=== PATIENT | male | born 1930 | race Caucasian/White ===

== ENCOUNTER 2016-08-31 11:49 | Inpatient (IN) | payer MEDICARE, MEDICAID ==
[2016-08-31] VITALS (21 sets, daily range): BP systolic 137–180; RESP 9–34; TEMP 98.3; BMI 22.1
[~2016-08-31] VITALS: Ht 160 cm; Wt 56.7 kg
[2016-08-31] MEDS ORDERED: ACETAMINOPHEN 650 MG SUPP RECTAL ONE (11:59)
[2016-08-31] MEDS ORDERED: FOSPHENYTOIN 1,000 PE in SODIUM CHLORIDE 0.9% 100 ML IV ONE (12:50)
[2016-08-31] MEDS ORDERED: ONDANSETRON 4 MG VIAL IV PUSH PRN (13:45)
[2016-08-31] MEDS ORDERED: ACETAMINOPHEN 325 MG TAB PO PRN ×2 (13:45)
[2016-08-31] MEDS ORDERED: SODIUM CHLORIDE 0.9% 250 ML IV ONE (14:02)
[2016-08-31] MEDS ORDERED: AZITHROMYCIN 500 MG VIAL IV ONE (14:02)
[2016-08-31] MEDS ORDERED: LORAZEPAM 2 MG/ML VIAL ONE (14:40)
[2016-08-31] MEDS: SODIUM CHLORIDE 0.45% 1,000 ML IV SCH (15:15)
[2016-08-31] MEDS: CEFTRIAXONE 1 GM in SODIUM CHLORIDE 0.9% 50 ML IV SCH (15:38)
[2016-08-31] MEDS: LABETALOL 100 MG/20 ML VIAL IV PUSH SCH ×2 (16:00→20:00)
[2016-08-31] MEDS ORDERED: MISSING DOSE XX ONE (16:00)
[2016-08-31] MEDS: LEVETIRACETAM INJ 500 MG in SODIUM CHLORIDE 0.9% 100 ML IV SCH (20:44)
[2016-09-01] VITALS (24 sets, daily range): BP systolic 143–203; RESP 13–34; TEMP 97.1–98.4; Ht 160 cm; Wt 56.7 kg
[2016-09-01] MEDS: LABETALOL 100 MG/20 ML VIAL IV PUSH SCH ×6 (02:20→20:00)
[2016-09-01] MEDS: LEVETIRACETAM INJ 500 MG in SODIUM CHLORIDE 0.9% 100 ML IV SCH ×2 (09:07→20:26)
[2016-09-01] MEDS: CEFTRIAXONE 1 GM in SODIUM CHLORIDE 0.9% 50 ML IV SCH (09:10)
[2016-09-01] MEDS: AZITHROMYCIN 500 MG in SODIUM CHLORIDE 0.9% 250 ML IV SCH (09:10)
[2016-09-01] MEDS: SODIUM CHLORIDE 0.45% 1,000 ML IV SCH ×2 (09:18→20:26)
[2016-09-01] MEDS: Carvedilol 6.25 MG TAB PO SCH (22:50)
[2016-09-01] MEDS: LISINOPRIL 10 MG TAB PO SCH (22:50)
[2016-09-02] VITALS (10 sets, daily range): BP systolic 111–164; RESP 16–20; TEMP 97.6–98.8
[2016-09-02] MEDS: LABETALOL 100 MG/20 ML VIAL IV PUSH SCH ×7 (03:52→23:58)
[2016-09-02] MEDS: SUCRALFATE 1 GM TAB PO SCH ×4 (06:19→21:00)
[2016-09-02] MEDS: LEVETIRACETAM INJ 500 MG in SODIUM CHLORIDE 0.9% 100 ML IV SCH ×2 (10:49→20:00)
[2016-09-02] MEDS: AZITHROMYCIN 500 MG in SODIUM CHLORIDE 0.9% 250 ML IV SCH (10:51)
[2016-09-02] MEDS: CEFTRIAXONE 1 GM in SODIUM CHLORIDE 0.9% 50 ML IV SCH (10:51)
[2016-09-02] MEDS: ASPIRIN EC 81 MG TAB PO SCH (10:51)
[2016-09-02] MEDS: LISINOPRIL 10 MG TAB PO SCH (10:51)
[2016-09-02] MEDS: Carvedilol 6.25 MG TAB PO SCH ×2 (10:51→21:00)
[2016-09-02] MEDS ORDERED: LEVETIRACETAM INJ 500 MG in SODIUM CHLORIDE 0.9% 100 ML IV ONE (12:05)
[2016-09-02] MEDS: LEVETIRACETAM INJ 1,000 MG in SODIUM CHLORIDE 0.9% 100 ML IV SCH (20:16)
[2016-09-02] MEDS ORDERED: LORAZEPAM 2 MG/ML VIAL IV ONE (21:25)
[2016-09-02] MEDS ORDERED: LORAZEPAM 2 MG/ML VIAL IV PRN (22:00)
[2016-09-02] MEDS ORDERED: FOSPHENYTOIN 1,000 PE in SODIUM CHLORIDE 0.9% 100 ML IV ONE (22:00)
[2016-09-02] MEDS: SODIUM CHLORIDE 0.45% 1,000 ML IV SCH (22:37)
[2016-09-03] VITALS (7 sets, daily range): BP systolic 93–131; RESP 18–33; TEMP 98–98.6
[2016-09-03] MEDS: LABETALOL 100 MG/20 ML VIAL IV PUSH SCH ×5 (04:00→20:00)
[2016-09-03] MEDS: SUCRALFATE 1 GM TAB PO SCH ×4 (06:26→20:14)
[2016-09-03] MEDS: SODIUM CHLORIDE 0.45% 1,000 ML IV SCH ×2 (07:27→19:05)
[2016-09-03] MEDS: LEVETIRACETAM INJ 1,000 MG in SODIUM CHLORIDE 0.9% 100 ML IV SCH ×2 (09:17→20:14)
[2016-09-03] MEDS: ASPIRIN EC 81 MG TAB PO SCH (09:25)
[2016-09-03] MEDS: Carvedilol 6.25 MG TAB PO SCH ×2 (09:25→20:14)
[2016-09-03] MEDS: LISINOPRIL 10 MG TAB PO SCH (09:25)
[2016-09-03] MEDS: CEFTRIAXONE 2 GM in SODIUM CHLORIDE 0.9% 50 ML IV SCH (10:38)
[2016-09-03] MEDS: AZITHROMYCIN 500 MG in SODIUM CHLORIDE 0.9% 250 ML IV SCH (12:09)
[2016-09-04] VITALS (7 sets, daily range): BP systolic 109–172; RESP 16–20; TEMP 98–98.8
[2016-09-04] MEDS: SODIUM CHLORIDE 0.45% 1,000 ML IV SCH ×2 (03:30→13:33)
[2016-09-04] MEDS: LABETALOL 100 MG/20 ML VIAL IV PUSH SCH ×7 (04:00→23:56)
[2016-09-04] MEDS: SUCRALFATE 1 GM TAB PO SCH ×4 (06:08→21:05)
[2016-09-04] MEDS: LEVETIRACETAM INJ 1,000 MG in SODIUM CHLORIDE 0.9% 100 ML IV SCH ×2 (09:04→21:05)
[2016-09-04] MEDS: ASPIRIN EC 81 MG TAB PO SCH (09:04)
[2016-09-04] MEDS: Carvedilol 6.25 MG TAB PO SCH ×2 (09:04→21:05)
[2016-09-04] MEDS: LISINOPRIL 10 MG TAB PO SCH (09:04)
[2016-09-04] MEDS: CEFTRIAXONE 2 GM in SODIUM CHLORIDE 0.9% 50 ML IV SCH (10:14)
[2016-09-04] MEDS: PHENYTOIN 100 MG CAP PO SCH (21:59)
[2016-09-05 03:39] VITALS: BP_SYST 150; RESP 16; TEMP 98.4
[2016-09-05] MEDS: LABETALOL 100 MG/20 ML VIAL IV PUSH SCH ×5 (04:43→20:00)
[2016-09-05] MEDS: SUCRALFATE 1 GM TAB PO SCH ×4 (06:02→20:17)
[2016-09-05 07:29] VITALS: BP_SYST 165; RESP 20; TEMP 98.2
[2016-09-05] MEDS: LEVETIRACETAM INJ 1,000 MG in SODIUM CHLORIDE 0.9% 100 ML IV SCH (08:23)
[2016-09-05] MEDS ORDERED: SALINE FLUSH 10 ML FLUSH PRN (08:25)
[2016-09-05] MEDS: CEFTRIAXONE 2 GM in SODIUM CHLORIDE 0.9% 50 ML IV SCH (09:39)
[2016-09-05] MEDS: LISINOPRIL 10 MG TAB PO SCH (09:40)
[2016-09-05] MEDS: Carvedilol 6.25 MG TAB PO SCH ×2 (09:40→20:17)
[2016-09-05] MEDS: ASPIRIN EC 81 MG TAB PO SCH (09:40)
[2016-09-05 11:42] VITALS: BP_SYST 187; RESP 20; TEMP 98.1
[2016-09-05 15:53] VITALS: BP_SYST 134; RESP 20; TEMP 97.5
[2016-09-05 20:13] VITALS: BP_SYST 143; RESP 16; TEMP 97.5
[2016-09-05] MEDS: PHENYTOIN 100 MG CAP PO SCH (20:17)
[2016-09-05] MEDS: LEVETIRACETAM 500 MG TAB PO SCH (20:17)
[2016-09-05] MEDS: SALINE FLUSH 10 ML FLUSH SCH (20:17)
[2016-09-05] MEDS: CEFUROXIME 250 MG TAB PO SCH (20:17)
[2016-09-05] MEDS ORDERED: MAG CIT SOLN 300 ML PO ONE (22:40)
[2016-09-05 23:34] VITALS: BP_SYST 145; RESP 16; TEMP 98.3
[2016-09-06] MEDS: DOCUSATE SOD 100 MG CAP PO SCH ×3 (01:01→20:14)
[2016-09-06 03:57] VITALS: BP_SYST 138; RESP 16; TEMP 98
[2016-09-06] MEDS: LABETALOL 100 MG/20 ML VIAL IV PUSH SCH ×6 (04:00→20:00)
[2016-09-06] MEDS: SODIUM CHLORIDE 0.9% FLUSH BAG 500 ML IV SCH (06:00)
[2016-09-06] MEDS: SUCRALFATE 1 GM TAB PO SCH ×4 (06:45→20:14)
[2016-09-06] MEDS: SALINE FLUSH 10 ML FLUSH SCH ×2 (08:00→20:00)
[2016-09-06 09:06] VITALS: BP_SYST 161; RESP 18
[2016-09-06] MEDS: CEFUROXIME 250 MG TAB PO SCH ×2 (10:41→20:14)
[2016-09-06] MEDS: ASPIRIN EC 81 MG TAB PO SCH (10:41)
[2016-09-06] MEDS: LEVETIRACETAM 500 MG TAB PO SCH ×2 (10:42→20:15)
[2016-09-06] MEDS: Carvedilol 6.25 MG TAB PO SCH ×2 (10:42→20:15)
[2016-09-06] MEDS: LISINOPRIL 10 MG TAB PO SCH (10:43)
[2016-09-06 13:17] VITALS: BP_SYST 118
[2016-09-06 16:15] VITALS: BP_SYST 114; RESP 18; TEMP 97.5
[2016-09-06] MEDS: PHENYTOIN 100 MG CAP PO SCH (20:14)
[2016-09-06 20:22] VITALS: BP_SYST 126; RESP 16; TEMP 98.4
[2016-09-06 22:54] VITALS: BP_SYST 130; RESP 18; TEMP 97.7
[2016-09-07 03:45] VITALS: BP_SYST 132; RESP 16; TEMP 97.7
[2016-09-07] MEDS: LABETALOL 100 MG/20 ML VIAL IV PUSH SCH ×6 (04:00→21:37)
[2016-09-07] MEDS: SODIUM CHLORIDE 0.9% FLUSH BAG 500 ML IV SCH (04:37)
[2016-09-07] MEDS: SUCRALFATE 1 GM TAB PO SCH ×4 (06:05→21:38)
[2016-09-07 07:24] VITALS: BP_SYST 134; RESP 20; TEMP 98
[2016-09-07] MEDS: CEFUROXIME 250 MG TAB PO SCH ×2 (09:22→21:38)
[2016-09-07] MEDS: SALINE FLUSH 10 ML FLUSH SCH ×2 (09:22→20:00)
[2016-09-07] MEDS: Carvedilol 6.25 MG TAB PO SCH ×2 (09:22→21:38)
[2016-09-07] MEDS: ASPIRIN EC 81 MG TAB PO SCH (09:22)
[2016-09-07] MEDS: DOCUSATE SOD 100 MG CAP PO SCH ×2 (09:22→21:38)
[2016-09-07] MEDS: LISINOPRIL 10 MG TAB PO SCH (09:22)
[2016-09-07] MEDS: LEVETIRACETAM 500 MG TAB PO SCH ×2 (09:22→21:38)
[2016-09-07 11:03] VITALS: BP_SYST 103; RESP 18; TEMP 98.9
[2016-09-07 14:59] VITALS: BP_SYST 102; RESP 20; TEMP 98.4
[2016-09-07 19:41] VITALS: BP_SYST 145; RESP 18; TEMP 97.6
[2016-09-07] MEDS: PHENYTOIN 100 MG CAP PO SCH (21:39)
[2016-09-07 23:52] VITALS: BP_SYST 128; TEMP 98.3
[2016-09-08] MEDS: LABETALOL 100 MG/20 ML VIAL IV PUSH SCH ×6 (04:00→19:35)
[2016-09-08 04:33] VITALS: BP_SYST 144; RESP 16; TEMP 98.4
[2016-09-08] MEDS: SODIUM CHLORIDE 0.9% FLUSH BAG 500 ML IV SCH (05:06)
[2016-09-08 07:31] VITALS: BP_SYST 170; RESP 16; TEMP 97.9
[2016-09-08] MEDS: SUCRALFATE 1 GM TAB PO SCH ×4 (08:23→19:37)
[2016-09-08] MEDS: SALINE FLUSH 10 ML FLUSH SCH ×2 (09:22→19:38)
[2016-09-08] MEDS: CEFUROXIME 250 MG TAB PO SCH ×2 (10:37→19:38)
[2016-09-08] MEDS: LEVETIRACETAM 500 MG TAB PO SCH ×2 (10:38→19:38)
[2016-09-08] MEDS: Carvedilol 6.25 MG TAB PO SCH ×2 (10:38→19:38)
[2016-09-08] MEDS: DOCUSATE SOD 100 MG CAP PO SCH ×2 (10:39→19:37)
[2016-09-08] MEDS: ASPIRIN EC 81 MG TAB PO SCH (10:39)
[2016-09-08] MEDS: LISINOPRIL 10 MG TAB PO SCH (10:39)
[2016-09-08] MEDS ORDERED: MISSING DOSE XX ONE (10:50)
[2016-09-08 10:58] VITALS: BP_SYST 143; RESP 24; TEMP 98.1
[2016-09-08 15:09] VITALS: BP_SYST 123; RESP 24; TEMP 98.2
[2016-09-08 19:20] VITALS: BP_SYST 169; RESP 16; TEMP 98.3
[2016-09-08] MEDS: PHENYTOIN 100 MG CAP PO SCH (19:38)
[2016-09-08 23:57] VITALS: BP_SYST 147; RESP 16; TEMP 97.7
[2016-09-09 03:12] VITALS: BP_SYST 175; RESP 18; TEMP 97.8
[2016-09-09] MEDS: LABETALOL 100 MG/20 ML VIAL IV PUSH SCH ×4 (04:00→11:43)
[2016-09-09] MEDS: SUCRALFATE 1 GM TAB PO SCH (07:00)
[2016-09-09 07:26] VITALS: BP_SYST 156; RESP 20; TEMP 98.1
[2016-09-09] MEDS: ASPIRIN EC 81 MG TAB PO SCH (08:09)
[2016-09-09] MEDS: CEFUROXIME 250 MG TAB PO SCH (08:09)
[2016-09-09] MEDS: LEVETIRACETAM 500 MG TAB PO SCH ×2 (08:09→21:38)
[2016-09-09] MEDS: DOCUSATE SOD 100 MG CAP PO SCH ×2 (08:09→21:39)
[2016-09-09] MEDS: Carvedilol 6.25 MG TAB PO SCH (08:09)
[2016-09-09] MEDS: LISINOPRIL 10 MG TAB PO SCH (08:09)
[2016-09-09 11:05] VITALS: BP_SYST 82; BP_SYST 89; RESP 20; TEMP 97.3
[2016-09-09 15:32] VITALS: BP_SYST 109; RESP 20; TEMP 97.6
[2016-09-09 19:55] VITALS: BP_SYST 118; RESP 20; TEMP 98.4
[2016-09-09] MEDS: PHENYTOIN 100 MG CAP PO SCH (21:39)
[2016-09-09 23:51] VITALS: BP_SYST 128; RESP 20; TEMP 97.9
[2016-09-10 07:49] VITALS: BP_SYST 150; RESP 20; TEMP 97.5
[2016-09-10] MEDS: DOCUSATE SOD 100 MG CAP PO SCH ×2 (08:19→21:01)
[2016-09-10] MEDS: LEVETIRACETAM 500 MG TAB PO SCH ×2 (08:19→21:02)
[2016-09-10] MEDS: ASPIRIN EC 81 MG TAB PO SCH (08:19)
[2016-09-10] MEDS: LISINOPRIL 10 MG TAB PO SCH (08:19)
[2016-09-10 11:19] VITALS: BP_SYST 111; RESP 16; TEMP 98.1
[2016-09-10 14:36] VITALS: BP_SYST 145; RESP 20; TEMP 98.5
[2016-09-10 17:42] VITALS: BP_SYST 136; RESP 18; TEMP 98.4
[2016-09-10 17:52] VITALS: BP_SYST 136; RESP 18; TEMP 98.4
[2016-09-10] MEDS: PHENYTOIN 100 MG CAP PO SCH (21:02)
== END 2016-09-10 21:15 | DRG 100 ==
LOC: ENRESERVDT → ENRESERVTM → ER 11:49 → ENPENDDIS 13:42 → DELPENDDIS 13:42 → EMR 13:42 → ICU 15:03 → 4NT 09-01 14:38
PROVIDERS: ADMIT Internal Medicine; ATTEND Internal Medicine
DX: G40.409 Other generalized epilepsy and epileptic syndromes, not intractable, without status epilepticus (principal); J18.9 Pneumonia, unspecified organism; E87.2 Acidosis; I10 Essential (primary) hypertension; F03.90 Unspecified dementia, unspecified severity, without behavioral disturbance, psychotic disturbance, mood disturbance, and anxiety; E78.5 Hyperlipidemia, unspecified; K21.9 Gastro-esophageal reflux disease without esophagitis; K27.7 Chronic peptic ulcer, site unspecified, without hemorrhage or perforation; K59.00 Constipation, unspecified; Z86.73 Personal history of transient ischemic attack (TIA), and cerebral infarction without residual deficits; Z79.82 Long term (current) use of aspirin
CPT/HCPCS: 36415; 71010; 80053; 80156; 80165; 80177; 80185; 80186; 81001; 82550; 82947; 83605; 84145; 84146; 85025; 87040; 87088; 87804; 93005; 95819; 96361; 96374; 96375